=== PATIENT | female | born 1960 | race Caucasian/White ===

== ENCOUNTER → 2017-10-30 | Outpatient (CLI) | payer OTHER ==
[~2017-10-30] MED LIST: FOSAMAX 70 MG T70 M1 OR; LEVOTHYROXIN0.025 M1 PO; NEXIUM20 M1 OR; NORCO 5-325 TA1 EACH PO; PRISTIQ100 MG PO; ZOCOR 20 MG TAB20 M1 OR
== END ==
LOC: M.RAD 14:23
DX: Z12.31 Encounter for screening mammogram for malignant neoplasm of breast (principal)

== ENCOUNTER 2018-09-28 18:50 | Emergency (ER) | payer OTHER ==
[~2018-09-28] VITALS: Ht 160 cm; Wt 63.5 kg
[~2018-09-28 18:50] MED LIST changes: -LEVOTHYROXIN0.025 M1 PO; +TIROSINT50 MCG
[2018-09-28] MEDS ORDERED: WELLBUTRIN 75 M75 M1 (19:10)
[2018-09-28] MEDS ORDERED: PROLIA60 MG/1 ML (19:11)
[2018-09-28 20:30] VITALS: BP 134/79
== END 2018-09-28 20:30 | disposition home or self-care (01) ==
LOC: M.ERS 18:50
DX: S50.02XA Contusion of left elbow, initial encounter (principal); E03.9 Hypothyroidism, unspecified; E78.00 Pure hypercholesterolemia, unspecified; M81.0 Age-related osteoporosis without current pathological fracture; Z88.5 Allergy status to narcotic agent; W01.0XXA Fall on same level from slipping, tripping and stumbling without subsequent striking against object, initial encounter; Y93.89 Activity, other specified; Y92.89 Other specified places as the place of occurrence of the external cause; Y99.8 Other external cause status

== ENCOUNTER → 2018-11-27 | Outpatient (CLI) | payer OTHER ==
[~2018-11-27] MED LIST changes: +PROLIA60 MG/1 ML; +WELLBUTRIN 75 M75 M1
== END ==
LOC: M.RAD 08:49
DX: Z12.31 Encounter for screening mammogram for malignant neoplasm of breast (principal); Z80.3 Family history of malignant neoplasm of breast

== ENCOUNTER → 2020-05-17 | Outpatient (CLI) | payer OTHER | LOC: M.RAD 08:46 | PROVIDERS: ATTEND Internal Medicine | DX: Z12.31 Encounter for screening mammogram for malignant neoplasm of breast (principal); M81.0 Age-related osteoporosis without current pathological fracture; M85.88 Other specified disorders of bone density and structure, other site ==